=== PATIENT | female | born 1995 | race Caucasian/White ===

== ENCOUNTER → 2017-05-24 | Emergency (ER) | payer BC, SELFPAY ==
[~2017-05-24] MED LIST: Acetaminophen 500 MG TAB ONE; Sodium Chloride 0.9% 1,000 ML ONE
[2017-05-24 16:42] LABS: Bilirubin Negative (Negative); Blood, Urine Trace (Negative); Clarity SLHAZY (Clear); Glucose, Urine (Dipstick) Negative (Negative); Leukocyte Large (Negative); Nitrite Negative (Negative); Pregnancy Test - Urine (BHCG) Negative (NEGATIVE); Pregu Control Background? CLEAR/WHITE (CLR/WHITE); Pregu Control Bar Appear? YES (CONTROL BAR); Protein, Urine (Dipstick) Negative (Neg-Trace); Urobilinogen 0.2 mg/dL (0.2-1.0)
[2017-05-24 16:43] LABS: Specific Gravity 1.008 (1.002-1.036); Specific Gravity, Urine 1.008 (1.002-1.036)
[2017-05-24 16:48] LABS: #Basophils 0.1 thou/uL (0.0-0.2); #Eosinphils 0.3 thou/uL (0.0-0.7); #Lymphocytes 2.5 thou/uL (1.20-3.40); #Monocytes 1.1 thou/uL (0.11-0.59); #Neutrophils 6.7 thou/uL (1.40-6.50); %Eosinophils 3.2 % (0.0-10.0); %Lymphocytes 22.9 % (21.0-51.0); %Monocytes 10.4 % (0.0-10.0); %Neutrophils 62.5 % (42.0-75.0); Hemoglobin 12.7 g/dL (12.0-16.0); Mean Corpuscular HGB CONC 32.1 g/dL (32.0-36.0); Mean Corpuscular Hemoglobin 29.9 pg (27.0-31.0); Mean Corpuscular Volume 93.1 fl (81.0-99.0); Mean Platelet Volume 7.7 fL (7.4-10.4); Platelet Count 263 thou/uL (130-400); RBC Distribution Width 12.3 % (11.5-14.5); Red Blood Cell (RBC) Count 4.24 mill/uL (4.20-5.40); White Blood Cell (WBC) Count 10.7 thou/uL (4.8-10.8)
[2017-05-24 16:51] LABS: RBC/HPF 0-3 HPF (0-3); Squamous Epithelial 0-3 HPF (0-3); WBC/HPF 0-3 HPF (0-3)
[2017-05-24 17:00] LABS: ALT (SGPT) 16 U/L (8-55); AST (SGOT) 20 U/L (5-34); Albumin 4.1 g/dL (3.5-5.0); Alkaline Phosphatase 78 U/L (40-150); Anion Gap 13 mmol/L (10-20); BUN (Urea Nitrogen) 16 mg/dL (7.0-18.7); Bilirubin, Total 0.2 mg/dL (0.2-1.2); Calc. Creatinine Clearance 0 mL/min (70-130); Calcium 9.3 mg/dL (7.8-10.44); Carbon Dioxide 24 mmol/L (22-29); Chloride 104 mmol/L (98-107); Estimated GFR-MDRD 83; Globulin 3.5 g/dL (2.4-3.5); Glucose 80 mg/dL (70-105); Potassium 4.1 mmol/L (3.5-5.1); Protein, Total 7.6 g/dL (6.0-8.3); Sodium 137 mmol/L (136-145)
--- NOTE | 2017-05-24 18:15 | CT ---
NONCONTRAST ABDOMEN AND PELVIC CT: 05/24/17 CLINICAL HISTORY: Right flank pain. FINDINGS: No prior imaging comparison available. There is no urolithiasis or obstructive uropathy. There is moderate volume of free pelvic fluid alfreda g with heterogeneity and prominence of the uterus and adnexa. Mild fat stranding of the low abdomen and pelvis is nonspecific. There is moderate retained fecal material of the colon. No free air. No c onsolidation at the imaged lung bases. Evaluation otherwise limited on the basis of noncontrast tech nique. IMPRESSION: 1. No urolithiasis or obstructive uropathy. 2. Heterogeneity of the uterus and adnexa with prominent volume as well as moderate free pelvic fluid. Recommend clinical correlation. As necessary, pelvic ultrasound may be performed for further evaluation. 3. Nonspecific mild fat surrounding of the low abdomen and pelvis. POS: JO
== END ==
LOC: NAV ERS 16:10
DX: R10.31 Right lower quadrant pain (principal)
CPT/HCPCS: 74176; 80053; 81003; 81015; 81025; 85025; 96360; J7050